=== PATIENT | female | born 1970 | race Caucasian/White ===

== ENCOUNTER 2019-05-04 13:32 | Emergency (ER) | payer OTHER ==
[2019-05-04 13:44] VITALS: BP 150/95; PULSE 76; TEMP 97.7; BMI 29.6
--- NOTE | 2019-05-04 14:11 | PDOC ---
History of Present Illness - General Chief Complaint: Cold Symptoms Stated Complaint: COLD SYMPTOMS Time Seen by Provider: 05/04/19 13:47 History Source: Patient Exam Limitations: No Limitations Past History - Past Medical History Allergies/Adverse Reactions: Allergies Allergy/AdvReac Type Severity Reaction Status Date / Time No Known Allergies Allergy Verified 05/04/19 13:41 - Psycho Social/Smoking Cessation Hx Smoking History: Never smoked Hx Alcohol Use: No Drug/Substance Use Hx: No *Physical Exam - Vital Signs Last Vital Signs Temp Pulse Resp BP Pulse Ox 97.7 F 76 16 150/95 99 05/04/19 13:41 05/04/19 13:41 05/04/19 13:41 05/04/19 13:41 05/04/19 13:41 - Physical Exam HEENT: positive: Normal Voice, Nasal Congestion. negative: Muffled/Hoarse voice, Pharyngeal Erythema, Tonsillar Exudate, Rhinorrhea Respiratory/Chest: positive: Lungs Clear, Normal Breath Sounds. negative: Respiratory Distress Cardiovascular: positive: Regular Rhythm, Regular Rate, S1, S2. negative: Murmur Integumentary: positive: Normal Color Neurologic: positive: Alert ED Treatment Course - RADIOLOGY Radiology Studies Ordered: Category Date Time Status CHEST PA & LAT [RAD] Stat Radiology 05/04/19 14:02 Ordered Medical Decision Making - Medical Decision Making 48 y/o F hx of HTN presents with productive cough, rhinorrhea, congestion x 5 days along with slight chills and bodyaches. States her work required her to get tested for flu. 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 Denies fever, sob, cp, abd pain, n/v/d, urinary sxs, recent travel. Likely viral URI Plan: CXR, flu swab 05/04/19 14:09 CXR negative flu negative likely viral uri stable for dc 05/04/19 14:35 Discharge - Discharge Information Problems reviewed: Yes Clinical Impression/Diagnosis: Viral URI Condition: Stable Disposition: HOME - Admission No - Additional Discharge Information Prescription Drug Monitoring Program (I-STOP) results: I-STOP not reviewed - Follow up/Referral Referrals: Arabella Callejas DO [Primary Care Provider] - 2 Days - Patient Discharge Instructions Patient Printed Discharge Instructions: DI for Viral Upper Respiratory Infection -- Adult Additional Instructions: Thank you for choosing [facility]. It was a pleasure taking care of you. You have viral infection Use Nedi Pot and Flonase spray to help with congestion You may use Robitussin or Mucinex as needed for cough Recommend rest and hydration Follow-up with your doctor in 2 days Return to the Emergency Department if your symptoms worsen or persist or have other concerning symptoms. - Post Discharge Activity
[2019-05-04] MEDS ORDERED: guaiFENesin 200 MG/10 ML 10 ML UNIT-DOSE CUPS PO ONE (14:13)
[2019-05-04] MEDS ORDERED: guaiFENesin/CODEINE 5 ML UNIT-DOSE CUPS PO ONE ×2 (14:15→14:16)
== END 2019-05-04 14:39 | disposition home or self-care (01) ==
LOC: JERFT 13:32
DX: J06.9 Acute upper respiratory infection, unspecified (principal); B97.89 Other viral agents as the cause of diseases classified elsewhere
CPT/HCPCS: 71046-TC-FY; 87804; 99283-25

== ENCOUNTER 2020-03-26 10:17 | Emergency (ER) | payer OTHER ==
[2020-03-26 10:45] VITALS: BMI 29.9
[2020-03-26 11:44] LABS: BASO % 1.1 % (0-2.0); EOS % 1.5 % (0-4.5); HEMATOCRIT 42.7 % (32.4-45.2); HEMOGLOBIN 14.7 GM/dL (10.7-15.3); LYMPH % 20.2 % (8-40); MCH 29.8 pg (25.7-33.7); MCHC 34.3 g/dl (32.0-36.0); MEAN CELL VOLUME 86.8 fl (80-96); MEAN PLT VOLUME 10.2 fl (7.5-11.1); NEUT % 72.2 % (42.8-82.8); PLATELET COUNT 205 K/MM3 (134-434); RBC 4.92 M/mm3 (3.60-5.2); RDW 14.1 % (11.6-15.6); WHITE BLOOD COUNT 8.2 K/mm3 (4.0-10.0)
[2020-03-26 12:02] LABS: POTASSIUM 3.8 mmol/L (3.5-5.1)
[2020-03-26 12:04] LABS: ALBUMIN 3.6 g/dl (3.4-5.0); BLOOD UREA NITROGEN 10.2 mg/dL (7-18); CALCIUM 8.9 mg/dL (8.5-10.1)
[2020-03-26 12:08] LABS: CREATININE 0.7 mg/dL (0.55-1.3)
[2020-03-26 12:09] LABS: BILIRUBIN,TOTAL 0.3 mg/dL (0.2-1); TOT PROT 7.7 g/dl (6.4-8.2)
[2020-03-26] MEDS ORDERED: KETOROLAC TROMETHAMINE 30 MG/1 ML VIAL IM ONE (13:08)
[2020-03-26] MEDS ORDERED: ACETAMINOPHEN 325 MG TABLET (FP) PO ONE (13:08)
[2020-03-26] MEDS ORDERED: KETOROLAC TROMETHAMINE 30 MG/1 ML VIAL ONE (13:11)
[2020-03-26] MEDS ORDERED: ACETAMINOPHEN 325 MG TABLET (FP) ONE (13:12)
[2020-03-26 13:42] VITALS: BP 145/75; PULSE 65; TEMP 98.1
== END 2020-03-26 13:40 | disposition home or self-care (01) ==
LOC: JER 10:17 → JERFT 10:17 → JER 13:40
PROC: 3E0233Z Introduction of Anti-inflammatory into Muscle, Percutaneous Approach (ICD-10-PCS; principal; 2020-03-26)
DX: N93.8 Other specified abnormal uterine and vaginal bleeding (principal)
CPT/HCPCS: 36415; 76830-TC; 80053; 85025; 86850; 86900; 86901; 99284-25